=== PATIENT | female | born 1950 | race Caucasian/White ===

== ENCOUNTER 2016-04-13 17:45 | Outpatient (CLI) | payer MEDICARE, OTHER | END 2016-04-13 17:46 | disposition home or self-care (01) | LOC: NAV LABSP 17:45 | PROVIDERS: ATTEND Family Medicine | DX: Z01.419 Encounter for gynecological examination (general) (routine) without abnormal findings (principal) ==

== ENCOUNTER 2017-09-23 11:09 | Emergency (ER) | payer MEDICARE, OTHER ==
--- NOTE | 2017-09-23 13:18 | RAD ---
THREE VIEWS RIGHT THUMB: Date: 09-23-17 Comparison: None. History: Trauma, injury, pain. FINDINGS: There is an obliquely oriented nondisplaced fracture involving the distal aspect of the first proxima l phalanx extending into the first interphalangeal joint. No evidence for dislocation. IMPRESSION: Obliquely oriented fracture involving the distal aspect of the first proximal phalanx extending into the phalangeal joint. POS: [facility]
== END 2017-09-23 13:03 | disposition home or self-care (01) ==
LOC: NAV ERS 11:09
DX: S62.514A Nondisplaced fracture of proximal phalanx of right thumb, initial encounter for closed fracture (principal); Z79.899 Other long term (current) drug therapy; W20.8XXA Other cause of strike by thrown, projected or falling object, initial encounter
CPT/HCPCS: 29125

== ENCOUNTER 2022-05-28 16:25 | Outpatient (CLI) | payer MEDICARE, OTHER | END 2022-05-28 16:26 | disposition home or self-care (01) | LOC: NAV RAD 16:25 | PROVIDERS: ATTEND Family Medicine | DX: U07.1 COVID-19 (principal) | CPT/HCPCS: 71045 ==

== ENCOUNTER 2024-05-15 14:26 | Outpatient (CLI) | payer MEDICARE, OTHER | END 2024-05-15 14:27 | disposition home or self-care (01) | LOC: NAV RAD 14:26 | PROVIDERS: ATTEND Student in an Organized Health Care Education/Training Program | DX: R06.02 Shortness of breath (principal); J90 Pleural effusion, not elsewhere classified; J98.11 Atelectasis | CPT/HCPCS: 71046 ==